=== PATIENT | female | born 1940 | race Caucasian/White ===

== ENCOUNTER 2020-11-13 12:38 | Emergency (ER) | payer MEDICARE, OTHER ==
[2020-11-13 13:54] LABS: INR-International Normal Ratio 2.4; Prothrombin Time 26.7 sec (12.0-14.7)
== END 2020-11-13 14:29 | disposition home or self-care (01) ==
LOC: NAV ERS 12:38
DX: S20.212A Contusion of left front wall of thorax, initial encounter (principal); S60.222A Contusion of left hand, initial encounter; E11.51 Type 2 diabetes mellitus with diabetic peripheral angiopathy without gangrene; E78.00 Pure hypercholesterolemia, unspecified; I48.91 Unspecified atrial fibrillation; I10 Essential (primary) hypertension; W19.XXXA Unspecified fall, initial encounter
CPT/HCPCS: 71250; 85610